=== PATIENT | male | born 1935 | race Caucasian/White ===

== ENCOUNTER → 2016-09-10 | Outpatient (CLI) | payer OTHER, BC ==
[~2016-09-10] MED LIST: CHLO1CAP PO; CHOL100010 PO; LANS30CA12 PO; LEVO150T22 PO; PHEN1TAB86 PO; ZNTT/150 PO
[2016-09-10 14:49] LABS: MAGNESIUM 2.5 mg/dl (1.8-2.4); THYROID STIMULATING HORMONE 1.42 uIu/ml (0.300-4.500)
[2016-09-10 15:01] LABS: ESTIMATED AVERAGE GLUCOSE 111 mg/dl; HA1C FLAG Normal (Normal)
--- NOTE | 2016-09-17 09:03 | CODING QUERY MEDICAL NECESSITY ---
SUPPORTING DIAGNOSIS NEEDED A supporting diagnosis is required for the test/procedure performed on this patient in order for us to be reimbursed by the patient's insurance. Please provide a supporting diagnosis for the following test/procedure listed below next to the test name along with your signature. *If there is no additional diagnosis for this patient that would support the following test/procedure please document that below next to the test/procedure. Test(s)/Procedure(s) that require a supporting diagnosis: DOS 09/10 * Hba1c DIAGNOSIS: Provider Signature: Date: Thank you Roseanna Billingsley Health Information Management Once completed, please kindly fax back to [phone] For questions please call [phone]
== END | disposition home or self-care (01) ==
LOC: C.LABBC 11:01
PROVIDERS: ATTEND Internal Medicine
DX: R20.9 Unspecified disturbances of skin sensation (principal); E03.9 Hypothyroidism, unspecified; E55.9 Vitamin D deficiency, unspecified; R53.83 Other fatigue; K21.9 Gastro-esophageal reflux disease without esophagitis

== ENCOUNTER → 2016-09-16 | Outpatient (CLI) | payer OTHER, BC ==
--- NOTE | 2016-09-16 10:12 | DIAGNOSTIC IMAGING REPORT ---
ULTRASOUND BILATERAL LOWER EXTREMITY ARTERIAL; ANKLE BRACHIAL INDICES CLINICAL HISTORY: Bilateral leg pain. COMPARISON STUDY: No priors. TECHNIQUE: Real-time, grayscale, and color Doppler sonography of the arteries of the right and left lower extremity is performed from the inguinal crease to the foot. Ankle-brachial indices are calculated. FINDINGS: Ankle-brachial indices: Right brachial pressure measures 139. Pressures in the right posterior tibial artery measure 133 for an ENRRIQUE of 0.96, and pressures in the right dorsalis pedis artery measure 120 for an ENRRIQUE of 0.86. Left brachial pressure measures 134. Pressures in the left posterior tibial artery measure 130 for an ENRRIQUE of 0.94, and pressures in the left dorsalis pedis artery measure 137 for an ENRRIQUE of 1.06. Right lower extremity: Echogenic atherosclerotic plaque is seen throughout the arteries of the right lower extremity. There are biphasic waveforms seen in the right common femoral artery with velocities measuring up to 66 cm/s. The right profunda femoris artery is patent with velocities measuring up to 55 cm/s. There are biphasic to triphasic waveforms seen throughout the right superficial femoral artery with velocities measuring up to 72 cm/s. There are biphasic waveforms in the popliteal artery with velocities measuring up to 53 cm/s. There is three-vessel runoff to the foot. Velocities in the right dorsalis pedis artery measure up to 102 cm/s. Left lower extremity: Atherosclerotic plaque and irregularity are seen throughout the arteries of the left lower extremity. The common femoral artery is patent and demonstrates triphasic arterial waveforms with velocities measuring up to 91 cm/s. The profunda femoris artery is patent with velocities measuring up to 64 cm/s. There are biphasic to triphasic waveforms seen throughout the left superficial femoral artery with velocities measuring up to 66 cm/s. There are biphasic waveforms in the popliteal artery with velocities measuring up to 63 cm/s. There is three-vessel runoff to the left foot. Velocities within the dorsalis pedis artery measure up to 126 cm/s. IMPRESSION: 1. There is no sonographic evidence of high-grade stenosis or focal vessel cutoff seen throughout the arteries of the right or left lower extremity. 2. Ankle brachial indices as above. Dictated: 09/16/2016 9:53 AM Transcribed: 09/16/2016 10:11 AM Jaida Electronically signed by: Toño Rico M.D. 09/16/2016 10:15 AM Dictated Date/Time: 09/16/2016 9:53 AM
== END | disposition home or self-care (01) ==
LOC: C.ULTR 08:27
PROVIDERS: ATTEND Internal Medicine Geriatric Medicine
DX: M79.606 Pain in leg, unspecified (principal); R94.39 Abnormal result of other cardiovascular function study

== ENCOUNTER → 2016-10-23 | Outpatient (CLI) | payer OTHER, BC | END | disposition home or self-care (01) | LOC: C.LABSPEC 17:32 | PROVIDERS: ATTEND Nurse Practitioner Adult Health | DX: N39.0 Urinary tract infection, site not specified (principal) ==

== ENCOUNTER → 2016-11-26 | Outpatient (CLI) | payer OTHER, BC ==
[~2016-11-26] MED LIST changes: +CHOL1000 PO; +DUTA0.5C PO; +LEVO150T PO; +LORA10CA2 PO; +RANI150T3 PO; +TADA20TA PO
[2016-11-26 15:11] LABS: BLOOD UREA NITROGEN 44 mg/dl (7-18); BUN/CREATININE RATIO 31.6 (10-20); CALCIUM 9.2 mg/dl (8.5-10.1); CARBON DIOXIDE 30 mmol/L (21-32); CHLORIDE 106 mmol/L (98-107); GLUCOSE 97 mg/dl (70-99); POTASSIUM 4.2 mmol/L (3.5-5.1); SODIUM 141 mmol/L (136-145)
== END | disposition home or self-care (01) ==
LOC: C.LABBC 11:10
PROVIDERS: ATTEND Urology
DX: R53.83 Other fatigue (principal); N39.0 Urinary tract infection, site not specified

== ENCOUNTER → 2017-02-04 | Outpatient (CLI) | payer OTHER, BC ==
[2017-02-04 13:24] LABS: ALT/SGPT 33 U/L (12-78); AST/SGOT 31 U/L (15-37); BLOOD UREA NITROGEN 39 mg/dl (7-18); BUN/CREATININE RATIO 32.7 (10-20); CALCIUM 8.9 mg/dl (8.5-10.1); CARBON DIOXIDE 25 mmol/L (21-32); CHLORIDE 109 mmol/L (98-107); CHOLESTEROL 145 mg/dl (0-200); GLUCOSE 83 mg/dl (70-99); POTASSIUM 4.2 mmol/L (3.5-5.1); SODIUM 144 mmol/L (136-145); TRIGLYCERIDES 135 mg/dl (0-150); VERY LOW DENSITY LIPOPROT CALC 27 mg/dl
[2017-02-04 13:31] LABS: ALKALINE PHOSPHATASE 67 U/L (45-117); CHOLESTEROL/HDL RATIO 2.6; FERRITIN 79.8 ng/ml (8.0-388.0); HDL CHOLESTEROL 56 mg/dl; LDL CHOLESTEROL CALCULATED 62 mg/dl; TOTAL IRON BINDING CAPACITY 249 mcg/dl (250-450)
== END | disposition home or self-care (01) ==
LOC: C.LAB 09:53
PROVIDERS: ATTEND Internal Medicine
DX: M54.18 Radiculopathy, sacral and sacrococcygeal region (principal)

== ENCOUNTER → 2017-02-06 | Outpatient (CLI) | payer OTHER, BC ==
[~2017-02-06] MED LIST changes: +GADOXETATE DISODIUM IV PRN
--- NOTE | 2017-02-06 12:06 | DIAGNOSTIC IMAGING REPORT ---
MRI LIVER COMBO CLINICAL HISTORY: Right lobe hepatic mass TECHNIQUE: Imaging was performed prior to and following IV contrast injection. (10 cc intravenous Eovist) COMPARISON STUDY: CT scan dated 04/12/2016, CT scan dated 09/19/2010, and 02/20/2006 FINDINGS: There is a lobulated 33 mm T2 bright mass with thin the right hepatic lobe posteriorly. This demonstrates restricted water diffusion. The lesion demonstrates peripheral nodular enhancement and is most consistent with a benign hepatic hemangioma. No splenic masses are visualized. There is no evidence of intrarectal hepatic biliary ductal dilatation There is an 8 mm right renal cyst No gallbladder is visualized. No adrenal masses are visualized. 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 IMPRESSION: 1. 33 mm T2 bright mass within the right hepatic lobe consistent with a benign hepatic hemangioma 2. 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 02/06/2017 12:04 PM Dictated Date/Time: 02/06/2017 11:55 AM
== END | disposition home or self-care (01) ==
LOC: C.MRIBC 09:47
PROVIDERS: ATTEND Internal Medicine
DX: K76.89 Other specified diseases of liver (principal); K86.2 Cyst of pancreas

== ENCOUNTER → 2017-04-17 | Outpatient (CLI) | payer OTHER, BC ==
[~2017-04-17] MED LIST changes: -CHOL1000 PO; -DUTA0.5C PO; -GADOXETATE DISODIUM IV PRN; -LEVO150T PO; -LORA10CA2 PO; -RANI150T3 PO; -TADA20TA PO
[2017-04-17 14:00] LABS: BASO % 0.4 %; BASO ABS # 0.02 K/uL (0-0.2); COMPLETE YES; EOS % 2.2 %; HEMATOCRIT 41.4 % (42-52); IG% 0.2 %; LYMPH % 26.7 %; LYMPH ABS # 1.22 K/uL (1.2-3.4); MEAN CELL VOLUME 94.3 fL (80-100); MEAN CORPUSCULAR HEMOGLOBIN 32.1 pg (25-34); MEAN CORPUSCULAR HGB CONC 34.1 g/dl (32-36); MEAN PLATELET VOLUME 10.6 fL (7.4-10.4); MONO % 12.7 %; NEUT % 57.8 %; PLATELET COUNT 174 K/uL (130-400); RED BLOOD COUNT 4.39 M/uL (4.7-6.1); WHITE BLOOD COUNT 4.57 K/uL (4.8-10.8)
[2017-04-17 14:12] LABS: BLOOD UREA NITROGEN 32 mg/dl (7-18); CALCIUM 8.8 mg/dl (8.5-10.1); CARBON DIOXIDE 30 mmol/L (21-32); CHLORIDE 108 mmol/L (98-107); GLUCOSE 80 mg/dl (70-99); POTASSIUM 4.5 mmol/L (3.5-5.1); SODIUM 142 mmol/L (136-145)
== END | disposition home or self-care (01) ==
LOC: C.LABBC 12:08
PROVIDERS: ATTEND Physician Assistant Medical
DX: R53.83 Other fatigue (principal)

== ENCOUNTER → 2017-06-05 | Day surgery (SDC) | payer OTHER, BC ==
[2017-06-04 11:23] VITALS: Ht 175.3 cm; Wt 69.5 kg
[~2017-06-05] VITALS: Ht 175.3 cm; Wt 69.5 kg
[~2017-06-05] MED LIST changes: +CHOL1000 PO; -CHOL100010 PO; +DUTA0.5C PO; +LEVO150T PO; -LEVO150T22 PO; +LIDOCAINE HCL 2% 2 ML VIAL (20MG/ML) ONE; +LORA10CA2 PO; +ONDANSETRON INJ 2 MG/ML 2 ML VIAL ONE; +PROPOFOL IV EMULSION 10 MG/ML 20 ML VIAL IV ONE; +RANI150T3 PO; +SODIUM CHLORIDE 0.9% 500ML 500 ML IV ONE; +TADA20TA PO; -ZNTT/150 PO
[2017-06-05 13:58] VITALS: TEMP 36.7
--- NOTE | 2017-06-05 15:13 | Endo History and Physical ---
History & Physical Date of Service: Jun 05, 2017. Chief Complaint: Vargas's,abdominal pain and reflux Referring Physician: Dr. 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 Past Medical History Arthritis, Fractures, Reflux, Seizure Disorder, Thrombophlebitis Past Surgical History Hx Cardiac Surgery: No Hx Internal Defibrillator: No Hx Pacemaker: No Hx Abdominal Surgery: No Hx Post-Op Nausea and Vomiting: No Hx Cancer Surgery: No Hx Thoracic Surgery: No Hx Orthopedic: Yes (LT RCR, RT FOOT BONE GRAFTING) Hx Urinary Tract Surgery: No Family History Esophogeal CA Social History Smoking Status: Former Smoker Hx Substance Use: No Hx Alcohol Use: Yes (OCCASIONALLY) Allergies Coded Allergies: Penicillins (Verified Allergy, Mild, HIVES, 06/04/17) BEE STING (Verified Allergy, Unknown, INSECT STINGS>SWELLING, 06/04/17) Current Medications Reported Home Medications Medications Dose Route/Sig Max Daily Dose Days Date Category Zantac (Ranitidine HCl) 150 Mg Tab 150 Mg PO DAILY 06/05/17 Reported Phenobarbital 60 Mg Tab 60 Mg PO QPM 06/04/17 Reported Claritin (Loratadine) 10 Mg Cap 10 Mg PO QAM 06/04/17 Reported Cialis (Tadalafil) 20 Mg Tab 20 Mg PO 2XWK 06/04/17 Reported Synthroid (Levothyroxine Sodium) 150 Mcg Tab 150 Mcg PO QAM 06/04/17 Reported Vitamin D3 (Cholecalciferol) 1,000 Unit Tab 1 Tab PO QAM 90 06/04/17 Reported Avodart (Dutasteride) 0.5 Mg Cap 0.5 Mg PO QAM 06/04/17 Reported Prevacid (Lansoprazole) 30 Mg Capcr 30 Mg PO QAM 08/31/15 Reported Chlordiazepoxide Hcl/Clid (Clidinium & Chlordiazepoxide) 1 Cap Cap 2.5-5 Mg PO QAM 04/06/13 Reported Vital Signs Weight (Kilograms): 69.55 Height (Feet): 5 Height (Inches): 9 Date Time Temp Pulse Resp B/P (MAP) Pulse Ox O2 Delivery O2 Flow Rate FiO2 06/05/17 13:58 36.7 62 24 130/78 (95) 97 Room Air Physical Exam General Appearance: WD/WN, no apparent distress Respiratory/Chest: Auscultation: breath sounds normal Cardiovascular: Heart Auscultation: RRR Abdomen: Bowel Sounds: normal Inspection & Palpation: soft, non-distended, no tenderness, guarding & rebound Assessment and Plan Assessment: 82 yo CM who presents for EGD secondary to Vargas's Esophagus. Plan: Proceed with EGD.
--- NOTE | 2017-06-05 15:31 | Discharge Instructions ---
Endoscopy Patient Instructions Date / Procedure(s) Performed Jun 05, 2017. EGD Allergy Information Coded Allergies: Penicillins (Verified Allergy, Mild, HIVES, 06/04/17) BEE STING (Verified Allergy, Unknown, INSECT STINGS>SWELLING, 06/04/17) Discharge Date / Findings Jun 05, 2017. Vargas's Esophagus s/p biopsies Hiatal hernia Medication Instructions OK to resume all medications today as prescribed Reported Home Medications Medications Dose Route/Sig Max Daily Dose Days Date Category Zantac (Ranitidine HCl) 150 Mg Tab 150 Mg PO DAILY 06/05/17 Reported Phenobarbital 60 Mg Tab 60 Mg PO QPM 06/04/17 Reported Claritin (Loratadine) 10 Mg Cap 10 Mg PO QAM 06/04/17 Reported Cialis (Tadalafil) 20 Mg Tab 20 Mg PO 2XWK 06/04/17 Reported Synthroid (Levothyroxine Sodium) 150 Mcg Tab 150 Mcg PO QAM 06/04/17 Reported Vitamin D3 (Cholecalciferol) 1,000 Unit Tab 1 Tab PO QAM 90 06/04/17 Reported Avodart (Dutasteride) 0.5 Mg Cap 0.5 Mg PO QAM 06/04/17 Reported Prevacid (Lansoprazole) 30 Mg Capcr 30 Mg PO QAM 08/31/15 Reported Chlordiazepoxide Hcl/Clid (Clidinium & Chlordiazepoxide) 1 Cap Cap 2.5-5 Mg PO QAM 04/06/13 Reported Provider Instructions Activity Restrictions - No exercising or heavy lifting for 24 hours. - Do not drink alcohol the day of the procedure. - Do not drive a car or operate machinery until the day after the procedure. - Do not make any important decisions or sign important papers in 24 hours after the procedure. Following Day: - Return to full activity which may include returning to work/school. Diet Start your diet with liquids and light foods (jello, soup, juice, toast). Then eat your usual diet if not nauseated. Treatment For Common After Affects For mild abdominal pain, bloating, or excessive gas: - Rest - Eat lightly - Lie on right side Follow-Up Information Follow-up with Dr. Mark Stevenson as scheduled Anesthesia Information What You Should Know You have had a procedure that required some medicine to reduce anxiety and discomfort. This treatment is called moderate sedation. After receiving the treatment, you may be sleepy, but you will be able to breathe on your own. The effects of the treatment may last for several hours. Follow these instructions along with Activity/Diet recommendations noted above: * Do NOT do anything where dizziness or clumsiness would be dangerous. * Rest quietly at home today, then you can be up and about tomorrow. * Have a responsible person stay with you the rest of today. * You may have had an I.V. today. If so, you may take the dressing off later today. Recommendations Call your doctor if: * Trouble breathing * Continuous vomiting for more than 24 hours * Temperature above 101 degrees * Severe abdominal pain or bloating * Pain not relieved by pain medicine ordered * There is increased drainage or redness from any incision * A large amount of rectal bleeding greater than 2-3 tablespoons. (If you had a polyp/s removed or have hemorrhoids, a small amount of blood - from the rectum is to be expected.) * You have any unanswered questions or concerns. IN THE EVENT OF A SERIOUS EMERGENCY, GO TO THE NEAREST EMERGENCY ROOM Your discharge instructions were prepared by provider Alfred Espinoza. Patient Instructions Signature Page [facility] Patient (or Guardian) Signature/Date: I have read and understand the instructions given to me by my caregivers. Caregiver/RN/Doctor Signature/Date: The above-named patient and/or guardian has received patient instructions on this date. + Original Patient Signature Page (only) stays with chart. Please make copy for patient.
--- NOTE | 2017-06-05 15:35 | GI REPORT ---
Procedure Date: 06/05/2017 1:44 PM Procedure: Upper GI endoscopy Indications: Follow-up of Vargas's esophagus Medicines: Monitored Anesthesia Care Complications: No immediate complications. Estimated Blood Loss: Estimated blood loss: none. Procedure: Pre-Anesthesia Assessment: - Prior to the procedure, a History and Physical was performed, and patient medications and allergies were reviewed. The patient's tolerance of previous anesthesia was also reviewed. The risks and benefits of the procedure and the sedation options and risks were discussed with the patient. All questions were answered, and informed consent was obtained. Prior Anticoagulants: The patient has taken no previous anticoagulant or antiplatelet agents. ASA Grade Assessment: II - A patient with mild systemic disease. After reviewing the risks and benefits, the patient was deemed in satisfactory condition to undergo the procedure. After obtaining informed consent, the endoscope was passed under direct vision. Throughout the procedure, the patient's blood pressure, pulse, and oxygen saturations were monitored continuously. The Scope was introduced through the mouth, and advanced to the second part of duodenum. The upper GI endoscopy was accomplished without difficulty. The patient tolerated the procedure well. Findings: There were esophageal mucosal changes consistent with short-segment Vargas's esophagus present at the gastroesophageal junction. The maximum longitudinal extent of these mucosal changes was 2 cm in length. Mucosa was biopsied with a cold forceps for histology. One specimen bottle was sent to pathology. A small hiatus hernia was present. The examined duodenum was normal. Impression: - Esophageal mucosal changes consistent with short-segment Vargas's esophagus. Biopsied. - Small hiatus hernia. - Normal examined duodenum. Recommendation: - Resume previous diet. - Continue present medications. - Await pathology results. - Return to primary care physician as previously scheduled. Alfred Espinoza, DO 06/05/2017 3:35:31 PM This report has been signed electronically. Note Initiated On: 06/05/2017 1:44 PM I attest to the content of the Intraoperative Record and orders documented therein, exceptions below
--- NOTE | 2017-06-05 15:57 | Anesthesiology Progress Note ---
Anesthesia Post Op Note Date & Time Jun 05, 2017 at 15:57 Vital Signs Pain Intensity: 0 Vital Signs Past 12 Hours Date Time Temp Pulse Resp B/P (MAP) Pulse Ox O2 Delivery O2 Flow Rate FiO2 06/05/17 15:45 65 18 146/76 (99) 96 Room Air 06/05/17 15:31 64 22 126/74 (91) 96 Room Air 06/05/17 13:58 36.7 62 24 130/78 (95) 97 Room Air Notes Mental Status: alert / awake / arousable, participated in evaluation Pt Amnestic to Procedure: Yes Nausea / Vomiting: adequately controlled Pain: adequately controlled Airway Patency, RR, SpO2: stable & adequate BP & HR: stable & adequate Hydration State: stable & adequate Anesthetic Complications: no major complications apparent
[2017-06-05 15:59] VITALS: BP 141/77; PULSE 58; O2SAT 98
== END | disposition home or self-care (01) ==
LOC: C.GI 13:33
PROVIDERS: ATTEND Internal Medicine
DX: Z09 Encounter for follow-up examination after completed treatment for conditions other than malignant neoplasm (principal); K44.9 Diaphragmatic hernia without obstruction or gangrene; K22.70 Barrett's esophagus without dysplasia; G40.909 Epilepsy, unspecified, not intractable, without status epilepticus; Z79.899 Other long term (current) drug therapy; Z98.890 Other specified postprocedural states; Z88.0 Allergy status to penicillin; Z87.891 Personal history of nicotine dependence; Z80.0 Family history of malignant neoplasm of digestive organs

== ENCOUNTER → 2017-10-07 | Outpatient (CLI) | payer OTHER, BC ==
[~2017-10-07] MED LIST changes: -LIDOCAINE HCL 2% 2 ML VIAL (20MG/ML) ONE; -ONDANSETRON INJ 2 MG/ML 2 ML VIAL ONE; -PROPOFOL IV EMULSION 10 MG/ML 20 ML VIAL IV ONE; -SODIUM CHLORIDE 0.9% 500ML 500 ML IV ONE
--- NOTE | 2017-10-07 14:15 | DIAGNOSTIC IMAGING REPORT ---
CHEST 2 VIEWS ROUTINE CLINICAL HISTORY: R05 Coughrecent left sided pneumonia (diagnosed 1 month ago in N dyspnea COMPARISON STUDY: 04/04/2016 FINDINGS: Mild emphysematous change. Minimal dependent basilar atelectasis unchanged from the prior study. No focal infiltrate. Diaphragms smooth but slightly flattened. Mild degenerative changes of thoracic spine. IMPRESSION: Mild emphysematous change. No acute process. The above report was generated using voice recognition software. It may contain grammatical, syntax or spelling errors. Electronically signed by: Reinaldo Eckert M.D. 10/07/2017 2:13 PM Dictated Date/Time: 10/07/2017 2:12 PM
== END | disposition home or self-care (01) ==
LOC: C.RADBC 13:36
PROVIDERS: ATTEND Physician Assistant Medical
DX: R05 Cough (principal)

== ENCOUNTER → 2017-12-05 | Outpatient (CLI) | payer OTHER, BC ==
--- NOTE | 2017-12-05 11:41 | DIAGNOSTIC IMAGING REPORT ---
CHEST 2 VIEWS ROUTINE HISTORY: Pneumonia. COMPARISON: Chest 10/07/2017. FINDINGS: The lungs are mildly hyperexpanded with apical predominant emphysematous changes. No focal lung consolidations to suggest pneumonia. The heart is normal in size. No pleural effusions. No pneumothorax. IMPRESSION: No significant change compared to the prior study. No acute process. Mild emphysema. Electronically signed by: Brennon Gruber M.D. 12/05/2017 11:39 AM Dictated Date/Time: 12/05/2017 11:38 AM
== END ==
LOC: C.RADBC 11:19
PROVIDERS: ATTEND Physician Assistant Medical
DX: J18.9 Pneumonia, unspecified organism (principal)

== ENCOUNTER 2023-12-25 06:40 | Observation (INO) ==
--- NOTE | 2023-12-11 10:12 | Anesthesiology Consultation ---
Date of Service December 11, 2023 Assessment & Plan (1) Encounter for pre-operative examination: Chart Review Chart Review: Acceptable Risk for Surgery and Patient NOT seen in Pre Admission Testing -Infectious Disease screening: Per PAT nursing assessment on 12/11/23. Patient resides at [facility]. No known infectious disease contacts in past 10 days or current infectious disease symptoms. No recent travel outside the country. Due to facility patient- patient will need [facility] DOS- ordered Cysto, TURBT 06/11/22= Done under GA With LMA #5.0 x 1, good seal. History Surgery Operation Date: 12/25/23 09:50 Proposed Procedures p TURP (Transurethral Resection of the Prostate) - Dave Garcia, Height/Weight Height: 5 ft 10 in Weight: 74.843 kg Allergies Allergy/AdvReac Type Severity Reaction Status Date / Time bee venom protein (honey bee) Allergy Intermediate INSECT Verified 12/11/23 08:49 STINGS>SWELLING Penicillins Allergy Intermediate HIVES Verified 12/11/23 08:49 Medications Home Medications Medication Instructions Recorded Confirmed Last Taken acetaminophen 325 mg tablet 325 mg PO QID PRN Pain 05/27/22 12/11/23 06/10/22 20:00 (Tylenol) calcium carbonate (Tums E-X) 300 mg PO BID PRN dyspepsia #60 08/26/23 12/11/23 Unknown tabs acetaminophen 500 mg tablet 500 mg PO Q6H PRN fever #30 tabs 09/17/23 12/11/23 Unknown (Tylenol Extra Strength) bismuth subsalicylate 525 mg/15 mL 525 mg (15 mL) PO Q30M PRN 09/17/23 12/11/23 Unknown oral suspension (Pepto-Bismol Max diarrhea #[address]) carboxymethylcellulose sodium 0.5 1 drp ophthalmic (eye) BID #15 mL 09/17/23 12/11/23 Unknown % eye drops (Refresh Tears) hydrocortisone 1 % topical cream 1 applic topical BID PRN skin 09/17/23 12/11/23 Unknown (Cortizone-10) irritation #28.4 grams sildenafil 50 mg tablet (Viagra) 50 mg PO ONCE PRN sexual activity 10/29/23 12/11/23 Unknown #4 tabs guaifenesin 600 mg tablet, 600 mg PO BID PRN congestion #60 12/01/23 12/11/23 Unknown extended release 12 hr (Mucinex) tabs phenobarbital 60 mg tablet 60 mg PO HS 30 days #30 tabs 12/01/23 12/11/23 Unknown clotrimazole 1 % topical cream 1 applic topical BID PRN Dry Skin 12/11/23 12/11/23 Unknown famotidine 40 mg tablet 40 mg PO QPM PRN Heartburn 12/11/23 12/11/23 Unknown fluticasone fur. 100 mcg-umeclid 1 inh inhalation QAM 12/11/23 12/11/23 Unknown 62.5 mcg-vilant 25 mcg inhalat.powder (Trelegy Ellipta) lansoprazole 30 mg capsule,delayed 30 mg PO QAM PRN Heartburn 12/11/23 12/11/23 Unknown release levothyroxine 150 mcg tablet 150 mcg PO QAM 12/11/23 12/11/23 Unknown nystatin 100,000 unit/gram topical 1 applic topical BID PRN yeast 12/11/23 12/11/23 Unknown cream sucralfate 1 gram tablet 1 g PO HS PRN Heartburn 12/11/23 12/11/23 Unknown Past Medical History Medical History (Updated 12/11/23 @ 10:20 by Shawanda Galdamez PA-C) Vargas's esophagus BPH (benign prostatic hyperplasia) Cervicalgia Conversion disorder with attacks or seizures - resident at [facility] Cyst of pancreas Interval stability of pancreatic head IPMN per 01/2022 abdomen MRI Dyshidrotic eczema Emphysema, interstitial recently seen by Pulm, Dr. Alvarenga, started on Trelegy Gait disturbance uses a walker as a result of a fall in 2021 GERD (gastroesophageal reflux disease) Hearing loss B/L hearing aides Hepatic cyst 3.2cm hemangioma per 01/2022 abdomen MRI History of COVID-19 not hospitalized, mild History of dysphagia History of seizures (~1967) last 1967--grand mal seizure on phenobarbital Hx of falling Hx of subdural hematoma (~11/2021) Hx of tinnitus Hx pulmonary embolism (~11/2021) Hypersomnia Pulm setting patient up for inpatient sleep study in the future per 11/2023 office visit Hypothyroidism IBS (irritable bowel syndrome) Inguinal hernia of left side without obstruction or gangrene Meralgia paresthetica of right side retirement resident PT RESIDENT AT [facility] Paresthesias/numbness Polyneuropathy Poor balance uses walker Radiculitis, lumbosacral Sacral radiculopathy SS-A antibody positive Urethral stricture Past Family History Family History Brother Family history of diabetes mellitus Hypertension Myocardial infarction Heart disease Father Acute myocardial infarction Unknown Glaucoma Grandmother Stomach cancer Other No family history of adverse response to anesthesia No family history of bleeding disorder Denies family history of Ovarian cancer Prostate cancer Breast cancer Lung cancer Colorectal cancer Past Surgical History Surgical History History of colonoscopy History of esophagogastroduodenoscopy (EGD) History of fasciotomy bilateral palmar fasciotomy for Dupuytren's Contracture History of repair of left rotator cuff (~1985) History of tonsillectomy and adenoidectomy History of tooth extraction all teeth Hx of arthroscopy of right knee Hx of transurethral resection of prostate (~05/2022) S/P foot surgery, right bone graft Social History Smoking Status: Former smoker Smoking cigarettes per day: 2 PPD Do You Dip or Chew Tobacco: No Smoking End Date: Quit 1975 Hx Alcohol Use: Yes Alcohol type: beer and wine alcohol intake frequency: holidays/special occasions only Hx Substance Use: No substance use type: does not use Lab Results Anesthesia Preop Results Results Anesthesia Widget: WBC 7.88 K/ul (4.8-10.8) 12/04/23 Hgb 13.7 g/dl (14.0-18.0) L 12/04/23 Hct 43.2 % (42.0-52.0) 12/04/23 Plt 240 K/uL (130-400) 12/04/23 Na 137 mmol/L (136-145) 12/04/23 K 4.2 mmol/L (3.5-5.1) 12/04/23 Cl 105 mmol/L (98-107) 12/04/23 CO2 27 mmol/L (21-32) 12/04/23 BUN 27 mg/dl (6-23) H 12/04/23 Creat 1.33 mg/dl (0.6-1.4) 12/04/23 Glucose Level 56 mg/dl (70-99(Fasting)) L 12/04/23 TSH 0.403 uIu/ml (0.300-4.500) 11/13/23 Testing Laboratory Results 12/04/23= URINE CULTURE: More than three types of organisms present, all high counts. Repeat collection recommended (will leave to surgeon's discretion) Electrocardiogram Date: 12/04/23 Findings: + NSR @ (70bpm) RBBB Chest X-Ray Date: 11/13/23 FINDINGS: PA and lateral chest radiographs are compared to study dated 03/18/2022. Correlation is made with chest CT dated 01/31/2022. The cardiomediastinal silhouette is unremarkable noting atherosclerotic calcification of the thoracic aorta. A hiatal hernia is observed. Emphysema and chronic interstitial thickening is similar to previous. There is bibasilar scarring/atelectasis. A nodular opacity in the right midlung is unchanged. The lungs and pleural spaces are otherwise clear. There is no pneumothorax. The skeletal structures are osteopenic. Mild degenerative change is noted in the shoulders and spine. The bony thorax appears intact. IMPRESSION: 1. Emphysematous change with no active disease in the chest. 2. Hiatal hernia. Pulmonary Function Test Date: 12/01/23 Moderate obstructive lung dysfunction Flow volume loop shows expiratory scooping Suggest clinical correlation
--- NOTE | 2023-12-15 15:01 | PAT Medication Instructions ---
Medication Instructions Date of Service December 15, 2023 Home Medications Medication Instructions Recorded calcium carbonate (Tums E-X) 300 mg PO BID PRN dyspepsia #60 08/26/23 tabs acetaminophen 500 mg tablet 500 mg PO Q6H PRN fever #30 tabs 09/17/23 (Tylenol Extra Strength) bismuth subsalicylate 525 mg/15 mL 525 mg (15 mL) PO Q30M PRN 09/17/23 oral suspension (Pepto-Bismol Max diarrhea #[address]) carboxymethylcellulose sodium 0.5 1 drp ophthalmic (eye) BID #15 mL 09/17/23 % eye drops (Refresh Tears) hydrocortisone 1 % topical cream 1 applic topical BID PRN skin 09/17/23 (Cortizone-10) irritation #28.4 grams sildenafil 50 mg tablet (Viagra) 50 mg PO ONCE PRN sexual activity 10/29/23 #4 tabs guaifenesin 600 mg tablet, 600 mg PO BID PRN congestion #60 12/01/23 extended release 12 hr (Mucinex) tabs phenobarbital 60 mg tablet 60 mg PO HS 30 days #30 tabs 12/01/23 acetaminophen 325 mg tablet (Tylenol) 325 mg PO QID PRN Pain calcium carbonate (Tums E-X) 300 mg PO BID PRN dyspepsia acetaminophen 500 mg tablet (Tylenol Extra Strength) 500 mg PO Q6H PRN fever bismuth subsalicylate 525 mg/15 mL oral suspension (Pepto-Bismol Max St) 525 mg (15 mL) PO Q30M PRN diarrhea carboxymethylcellulose sodium 0.5 % eye drops (Refresh Tears) 1 drp ophthalmic (eye) BID hydrocortisone 1 % topical cream (Cortizone-10) 1 applic topical BID PRN skin irritation sildenafil 50 mg tablet (Viagra) 50 mg PO ONCE PRN sexual activity guaifenesin 600 mg tablet, extended release 12 hr (Mucinex) 600 mg PO BID PRN congestion phenobarbital 60 mg tablet 60 mg PO HS clotrimazole 1 % topical cream 1 applic topical BID PRN Dry Skin famotidine 40 mg tablet 40 mg PO QPM PRN Heartburn fluticasone fur. 100 mcg-umeclid 62.5 mcg-vilant 25 mcg inhalat.powder (Trelegy Ellipta) 1 inh inhalation QAM lansoprazole 30 mg capsule,delayed release 30 mg PO QAM PRN Heartburn levothyroxine 150 mcg tablet 150 mcg PO QAM nystatin 100,000 unit/gram topical cream 1 applic topical BID PRN yeast sucralfate 1 gram tablet 1 g PO HS PRN Heartburn STOP taking 24 hours before surgery hydrocortisone 1 % topical cream (Cortizone-10) 1 applic topical BID PRN skin irritation sildenafil 50 mg tablet (Viagra) 50 mg PO ONCE PRN sexual activity clotrimazole 1 % topical cream 1 applic topical BID PRN Dry Skin nystatin 100,000 unit/gram topical cream 1 applic topical BID PRN yeast DO NOT take the morning of surgery calcium carbonate (Tums E-X) 300 mg PO BID PRN dyspepsia bismuth subsalicylate 525 mg/15 mL oral suspension (Pepto-Bismol Max St) 525 mg (15 mL) PO Q30M PRN diarrhea guaifenesin 600 mg tablet, extended release 12 hr (Mucinex) 600 mg PO BID PRN congestion Take morning of surgery With a small sip of water, OTHERWISE NOTHING TO EAT OR DRINK AFTER MIDNIGHT: acetaminophen 325 mg tablet (Tylenol) 325 mg PO QID PRN Pain (if needed) acetaminophen 500 mg tablet (Tylenol Extra Strength) 500 mg PO Q6H PRN fever (if needed) carboxymethylcellulose sodium 0.5 % eye drops (Refresh Tears) 1 drp ophthalmic (eye) BID fluticasone fur. 100 mcg-umeclid 62.5 mcg-vilant 25 mcg inhalat.powder (Trelegy Ellipta) 1 inh inhalation QAM lansoprazole 30 mg capsule,delayed release 30 mg PO QAM PRN Heartburn (if needed) levothyroxine 150 mcg tablet 150 mcg PO QAM Take evening before surgery acetaminophen 325 mg tablet (Tylenol) 325 mg PO QID PRN Pain (if needed) calcium carbonate (Tums E-X) 300 mg PO BID PRN dyspepsia (if needed) acetaminophen 500 mg tablet (Tylenol Extra Strength) 500 mg PO Q6H PRN fever (if needed) bismuth subsalicylate 525 mg/15 mL oral suspension (Pepto-Bismol Max St) 525 mg (15 mL) PO Q30M PRN diarrhea (if needed) carboxymethylcellulose sodium 0.5 % eye drops (Refresh Tears) 1 drp ophthalmic (eye) BID guaifenesin 600 mg tablet, extended release 12 hr (Mucinex) 600 mg PO BID PRN congestion (if needed) phenobarbital 60 mg tablet 60 mg PO HS famotidine 40 mg tablet 40 mg PO QPM PRN Heartburn (if needed) sucralfate 1 gram tablet 1 g PO HS PRN Heartburn (if needed) Other Notes If you have any questions please call us at [phone] or [phone] or [phone] or [phone]
[~2023-12-25 06:40] MED LIST changes: +ALLERGY Noted to ORDERED Medication SCH; -CHLO1CAP PO; -CHOL1000 PO; -DUTA0.5C PO; -LANS30CA12 PO; -LEVO150T PO; -LORA10CA2 PO; -PHEN1TAB86 PO; -RANI150T3 PO; -TADA20TA PO
--- OUTSIDE RECORDS SUMMARY | 2023-12-25 06:55 | External Medical Summary ---
Author Name Unknown Address Unknown Organization [id number]:[facility] [place] - [address] [place] [id number] Laboratory Report Ordering Provider Test Date Status TAVO VAZQUEZ 12/16/2023 06:50:45 Final Observation Date Value Abnormality Reference (Units) Status Bacteria identified in Specimen by Culture 12/16/2023 06:50:45 Multiple maryse suggests contamination or colonization Final Test: Culture, Urine, Quanti tative
Specimen Source: Urine, Clean Catch
Specimen Type: Urine
Specimen Date: 12/16/2023 6:50 AM
Result Date: 12/17/2023 10:40 AM
Result Status: Final result
Resulting Lab: [facility] [place]
[address]
[facility] [address]

CULTURE

Multiple maryse suggests contamination or colonization

null Performing Location [facility] [place] - [address] [facility] [address]
--- OUTSIDE RECORDS SUMMARY | 2023-12-25 06:55 | External Medical Summary ---
Author Name Unknown Address Unknown Organization [id number]:[facility] - [address] [place] [address] Laboratory Report Ordering Provider Test Date Status TAVO VAZQUEZ 12/16/2023 06:50:45 Final Observation Date Value Abnormality Reference (Units ) Status Color of Urine by Auto 12/16/2023 06:50:45 Yellow Light Yellow, Yellow, Dark Yellow Final Clarity, Urine 12/16/2023 06:50:45 Cloudy Abnormal Clear Final Glucose [Mass/volume] in Urine by Automated test strip 12/16/2023 06:50:45 Negative Negative (mg/dL) Final Bilirubin.total [Presence] in Urine by Automated test strip 12/16/2023 06:50:45 Negative Negative Final Ketones [Mass/volume] in Urine by Automated test strip 12/16/2023 06:50:45 Negative Negative (mg/dL) Final Specific gravity, Urine 12/16/2023 06:50:45 1.020 1.003-1.030 Final Hemoglobin [Presence] in Urine by Automated test strip 12/16/2023 06:50:45 Small Abnormal Negative Final pH, Urine 12/16/2023 06:50:45 6.0 5.0-7.5 (Units) Final Protein [Mass/volume] in Urine by Automated test strip 12/16/2023 06:50:45 100 Abnormal Negative (mg/dL) Final Urobilinogen [Mass/volume] in Urine by Automated test strip 12/16/2023 06:50:45 0.2 0.2, 1.0 (mg/dL) Final Nitrite [Presence] in Urine by Automated test strip 12/16/2023 06:50:45 Negative Negative Final Leukocyte esterase [Presence] in Urine by Automated test strip 12/16/2023 06:50:45 Large Abnormal Negative Final RBC, Urine 12/16/2023 06:50:45 0-2 0-2 (/HPF) Final WBC, Urine 12/16/2023 06:50:45 50+ Abnormal 0-2 (/HPF) Final Bacteria [#/area] in Urine sediment by Microscopy high power field 12/16/2023 06:50:45 0-25 0-25 (/HPF) Final CULTURE, URINE - [facility] 12/16/2023 06:50:45 Final Quantitative urine culture t o be performed Performing Location [facility] - [address] [place] [address]
--- OUTSIDE RECORDS SUMMARY | 2023-12-25 06:55 | External Medical Summary | Summary of Care ---
Author Name Unknown Organization [facility] Address [address] [place] [address] Phone [phone] Care Team Providers Care Road Test Examiner Name Role Phone Mark Stevenson MD Primary Care Provider Encounter Details Date Type Department Care Team (Late st Contact Info) Description 12/16/2023 Orders Only Lab Mobile Phlebotomy [facility] [address] [employer] [facility] [place] [address] Lillian Murry CRNP [address] [facility] [place] [address] Symptoms involving urinary system* Allergies Active Allergy Reactions Criticality Noted Date Comments Penicillins 05/18/2013 Pollen 05/18/2013 Seasonal, Ragweed documented as of this encounter (statuses as of 12/16/2023) Medications Medication Sig Dispensed Refills Start Date End Date Status PHENOBARBITAL 60 MG OR TABSIndications: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 (at least 30 min prior to breakfast or other meds) 0 Active clindinium-chlordiazep oxide (LIBRAX) 2.5-5 MG per capsule Take 1 Cap by mouth daily. 0 05/15/2017 Active dutasteride (AVODART) 0.5 MG Capsule TAKE 1 CAPSULE BY MOUTH ONCE DAILY - GENERIC AVODART 3 05/22/[address] (PREVACID) 30 MG CPDR Take 30 mg by mouth daily. 3 04/26/2017 Active loratadine (CLARITIN) 10 MG Tablet Take 10 mg by mouth daily. 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 Allergic rhinitis NON ALLERGIC RHINITIS Dysfunction of eustachian tube Otitis media Presbyacusis Sensorineural hearing loss, bilateral documented as of this encounter (statuses as of 12/16/2023) Immunizations Name Administration Dates Next Due COVID-19 mRNA, LNP-s, No Pre serve, 2-Dose Series (Moderna) 10/15/2020,09/19/2020 Seasonal Influenza, PF, 6 M & above, IM , (FluLaval or Fluzone) 06/16/2019,05/19/2018 Seasonal Influenza, Quadrivalent, No Preserve, I M 06/27/2016 Seasonal Influenza, Split, IIV3, With Preserve, Inj 05/13/2014,05/18/2013 documented as of this encounter Social History Tobacco Use Types Packs/Day Years Used Date Smoking Tobacco: Former Smokeless Tobacco: Never Alcohol Use Standard Drinks/Week Comments Yes 0 (1 standard drink = 0.6 oz pur e alcohol) one glass wine daily Sex and Gender Information Value Date Recorded Sex Assigned at Not on file Gender Identity Not on file Sexual Orientation Not on file Job Start Date Occupation Industry Not on file Not on file Not on file documented as of this encounter Progress Notes * Rhea Adams TECH - 12/16/2023 6:49 AM EDT lab documented in this encounter Plan of Treatment Scheduled Orders Name Type Priority Associated Diagnoses Orde r Schedule URINALYSIS, REFLEX TO CULTURE (NOT FOR NEUTROPENIC PATIENTS) Lab Routine Symptoms involving urinary system Expected: 12/16/2023, Expires: 12/15/2024 Health Maintenance Due Date Last Done Comments Depression Screening 1947 Zoster Vaccines (1 of 2) 1984 DTaP,Tdap,and Td Vaccines (1 - Tdap) 07/19/1997 07/18/1997, 07/18/1997 TSH 02/26/2003 02/26/2002, 08/18, 07/05/2001, Additional history exists Pneumococcal Vaccine: 65+ Years (2 of 2 - PCV) 12/12/2022 12/12/2021, 06/10/2001 COVID-19 Vaccine ( - season) 2023 06/26/2021, 10/15/2020, 09/19/2020 Influenza Vaccine (FLU shot) (Season Ended) 2024 06/16/2019, 05/19/2018, 06/27/2016, Additional history exists GARDASIL-HPV IMMUNIZATION SERIES Aged Out No longer eligible based on patient's age to complete this topic Hepatitis B Aged Out No longer eligi ble based on patient's age to complete this topic MENINGOCOCCAL (MENACTRA/MENVEO) Aged Out No longer eligible based on patient's age to complete this topic documented as of this encounter Medical Devices Not on filedocumented as of this encounter Visit Diagnoses Diagnosis Symptoms involving urinary system- Primary Other symptoms involving urinary system documented in this encounter Care Teams Road Test Examiner Relationship Specialty Start Date End Date Mark Stevenson MD PCP - General Internal Medicine 09/04/14 documented as of this encounter
[2023-12-25] MEDS ORDERED: fentaNYL citrate PF 100 MCG/2 ML VIAL ONE (07:35)
[2023-12-25] MEDS ORDERED: DEXAMETHASONE SOD INJ 4 MG/ML VIAL ONE (07:35)
[2023-12-25] MEDS ORDERED: LIDOCAINE 2% 2 ML VIAL/AMP(20MG/ML) INFIL ONE (07:35)
[2023-12-25] MEDS ORDERED: ONDANSETRON INJ 2 MG/ML 2 ML VIAL ONE (07:35)
[2023-12-25] MEDS ORDERED: PROPOFOL IV EMULSION 10 MG/ML 20 ML VIAL IV ONE (07:35)
[2023-12-25] MEDS ORDERED: Nursing to Pharmacy Communication SCH (07:45)
[2023-12-25] MEDS ORDERED: ATROPINE SULFATE 0.1 MG/ML 10ML SYR IV PRN (07:49)
[2023-12-25] MEDS ORDERED: ONDANSETRON INJ 2 MG/ML 2 ML VIAL IV PRN (07:49)
[2023-12-25] MEDS ORDERED: ePHEDrine sulfate 50 MG/ML AMP IV PRN (07:49)
[2023-12-25] MEDS ORDERED: fentaNYL citrate PF 100 MCG/2 ML VIAL IV PRN (07:49)
[2023-12-25] MEDS: LACTATED RINGER'S 1,000 ML IV SCH (07:50)
--- NOTE | 2023-12-25 07:53 | History & Physical Bridge Note ---
Date of Service December 25, 2023 History & Physical Bridge Note I have examined the patient, reviewed the History & Physical and in the interval since the performance of the History & Physical I have noted the following changes of clinical significance: no changes noted
[2023-12-25] MEDS ORDERED: oxyBUTYnin chloride 5 MG TAB PO PRN (07:55)
[2023-12-25] MEDS ORDERED: oxyCODONE/ACETAMINOPHEN 5mg/325mg TAB PO PRN (07:55)
[2023-12-25] MEDS ORDERED: MoRPHine SULFATE 2 MG/ML CARP IV PRN (07:55)
[2023-12-25] MEDS ORDERED: PHENAZOPYRIDINE HCL 200 MG TAB PO PRN (07:55)
[2023-12-25] MEDS: ceFAZolin 2,000 MG/15 ML IV PUSH IV ONE (08:00)
[2023-12-25] MEDS ORDERED: FAMOTIDINE 40 MG TABLET PO PRN (08:01)
[2023-12-25] MEDS ORDERED: PANTOprazole 40 MG TAB PO PRN (08:01)
[2023-12-25] MEDS ORDERED: NON-FORMULARY MEDICATION (Fluticasone-Umeclidin-Vilanter [Trelegy Ellipta] 100-62.5-25 mcg INH SCH (09:00)
--- NOTE | 2023-12-25 09:16 | Operative Report ---
PG Post Operative Report Pre & Post Diagnosis Operation Date: 12/25/23 08:20 Pre-Op Diagnosis: Benign Prostatic Hyperplasia with Urinary Obstruction Post-Op Diagnosis: Benign Prostatic Hyperplasia with Urinary Obstruction I identified the patient and participated in the time-out.: Yes Procedure Operation Date: 12/25/23 08:20 Actual Procedures p Transurethral Resection of the Prostate(Not Applicable) - Dave Garcia DO Surgeon Dave Garcia, II, DO Ripshear Operator None Estimated Blood Loss 5 Findings Consistent with Post-Op Diagnosis Large Prostate with obstruction. Irregular regrowth of prostate with very large left lateral lobe and pockets of debris within the regrowth. Specimens Prostate adenoma. Drains 22Fr 3way Catheter Anesthesia Type General Complications none Disposition Disposition: Recovery Room Indications Patient with obstruction due to prostate enlargement. Risks and benefits discussed at length. Description of Procedure Patient was consented and brought back to the operating room. Patient was placed under anesthesia in the supine position and moved to the dorsal lithotomy position. Patient was prepped and draped in the regular sterile fashion. A time out was completed. A 30degree Cystoscope was placed into the bladder and the entire bladder was examined. The UO's were identified as well as the bladder neck, trigone, dome, and the other important landmarks. The prostatic urethra and large lobes/adenoma was assessed and the veru and bladder neck identified and a regina/size was assessed. The resection scope was placed and the fine bipolar loop was selected. Starting at the 5 and 7 o'clock positions, a channel was created from bladder neck to the veru. Starting at the 11 and 1 o'clock positions, the prostate was resected down to capsule fibers. The tissue was then resected sweeping down to the median channel. The entire area was able to be cleared and resected. Pockets of debris were discovered in the left lateral lobe of the prostate. This was flushed clear. The Specimen was removed and sent for analysis. The resection bed and any bleeding areas were fulgurated/cauterized and the entire area inspected. All bleeding was controlled. The bladder was inspected a final time. The bladder was emptied and irrigated. All specimen and debris was removed. The scope was removed with the bladder partially full. A catheter was placed and balloon elevated. This was easily irrigated. The patient was cleaned, aroused from anesthesia, and transferred to the pacu in stable condition having tolerated the procedure well with no complications. I was present and participated in all aspects of the procedure. The patient will be monitored in the PACU until transferred. Plan to maintain catheter for 1-2 weeks. Monitor over night with observation. I attest to the content of the Intraoperative Record and any orders documented therein. Any exceptions are noted below.
--- NOTE | 2023-12-25 09:57 | Anesthesiology Progress Note ---
Date of Service December 25, 2023 Anesthesia Post Procedure Vital Signs Vital Signs: Temp Pulse Resp BP Pulse Ox O2 Del Method O2 Flow Rate 12/25/23 09:55 97.7 F 74 19 169/83 H 92 Room Air 0 12/25/23 09:50 73 18 164/103 H 95 Nasal Cannula 2 12/25/23 09:40 72 12 175/89 H 97 Nasal Cannula 2 12/25/23 09:30 72 12 164/83 H 97 Nasal Cannula 2 12/25/23 09:21 96.8 F L 72 16 166/79 H 97 Nasal Cannula 2 12/25/23 07:28 97.7 F 72 20 164/90 H 95 Room Air Transfer of Care Handoff Completed per policy Notes Mental Status: alert / awake / arousable and participated in evaluation Patient Amnestic to Procedure: Yes Nausea / Vomiting: adequately controlled Pain: adequately controlled Airway Patency, RR, SpO2: stable & adequate BP & HR: stable & adequate Hydration State: stable & adequate Anesthetic Complications: no major complications apparent and Pt Satisfied with anesthetic care
[2023-12-25 10:26] LABS: Basophils # (auto) 0.09 K/uL (0.00-0.20); Basophils % (auto) 0.9 %; Eosinophils # (auto) 0.12 K/uL (0.00-0.50); Eosinophils % (auto) 1.2 %; Hematocrit (blood only) 37.8 % (42.0-52.0); Hemoglobin 12.6 g/dl (14.0-18.0); Immature Granulocytes # (auto) 0.17 K/uL (0.01-0.20); Immature Granulocytes % (auto) 1.7 %; Lymphocytes # (auto) 0.85 K/uL (1.20-3.40); Lymphocytes % (auto) 8.4 %; Mean Corpuscular Hemoglobin 30.1 pg (25.0-34.0); Mean Corpuscular Hgb Conc 33.3 g/dL (32.0-36.0); Mean Corpuscular Volume 90.4 fL (80.0-100.0); Monocytes # (auto) 0.63 K/uL (0.11-0.59); Monocytes % (auto) 6.2 %; Neutrophils # (auto) 8.28 K/uL (1.40-6.50); Neutrophils % (auto) 81.6 %; Platelet Count 244 K/uL (130-400); RDW Coefficient of Variation 15.2 % (11.5-14.5); RDW Standard Deviation 50.3 fL (36.4-46.3); Red Blood Count 4.18 M/uL (4.70-6.10); White Blood Count 10.14 K/ul (4.8-10.8)
[2023-12-25 10:42] LABS: Albumin Globulin Ratio 1.2 (0.9-2); Albumin Level 3.6 gm/dl (3.4-5.0); BUN Creatinine Ratio 21.2 (10-20); Bilirubin,Total 0.4 mg/dl (0.2-1.0); Calcium 8.3 mg/dl (8.6-10.3); Creatinine Clr Calc Pharmacy 39.2 ml/min; Est GFR (Non-African American) 47.5 ml/min; Globulin 2.9 gm/dl (2.5-4.0); Potassium 4.8 mmol/L (3.5-5.1); Total Protein 6.5 gm/dl (6.0-8.3)
[2023-12-25] MEDS ORDERED: CALCIUM CARBONATE 1250MG TAB PO PRN (10:51)
--- NOTE | 2023-12-25 10:53 | Hospitalist Consultation ---
Date of Consultation December 25, 2023 Assessment & Plan (1) S/P TURP: S/p transurethral resection of prostate on 12/[address] Garcia Perioperative antibiotics, pain management, fluids, and DVT PPx per the primary team Patient reports no new pain or complaints at time of consult We will continue to follow (2) Emphysema, interstitial: Former tobacco cigarette smoker but quit 50 years ago Follows with pulmonology Patient is not on supplemental oxygen at baseline Continuous pulse oximetry while in patient Supplemental oxygen as needed; titrate to 89-92% Continue Trelegy (or Anoro Ellipta) daily (3) Chronic cough: Productive cough x 2 months Guaifenesin 600 mg p.o. q12h PRN for cough (4) History of seizures: Last grand mal seizure in 1967 He reports no problems since Seizure precautions not necessary at this time Continue phenobarbital 60 mg p.o. at bedtime (5) Anemia: Chronic; Hgb 12.6 post-op Hgb between 11.7 - 14.0 over the past couple years No signs of active bleeding on physical exam Carbajal draining clear yellow urine Can obtain repeat CBC prior to discharge if needed Plan Agree with current medical management: Disposition: MedSur Regular diet VTE PPx: SCDs/teds Thank you for allowing us to participate in the care of this patient, please reach out with any questions or concerns. We will continue to follow. Supervising Physician Co-Signing Physician Notes Patient seen and examined, chart reviewed, case discussed with Brennon Lombardi and I agree with the assessment and plan as above except as otherwise noted Labs and images reviewed Jonathan is an 88-year-old male with past medical history of COPD Gold stage B with [id number] smoking history in remission since , chronic cough, BPH with LUTS who presented for scheduled TURP due to BPH. We are consulted for postoperative medical management. Operative note reviewed, no complications during procedure. Patient seen at the bedside. Reports that he has a past history of seizures but none in several decades, reports that he is on phenobarbital for this and did have multiple seizures many decades ago and that these all occurred while playing chess which he no longer plays. Denies Bleeding issues, hematochezia, melena, epistaxis. Former smoker. Endorses that he has COPD/emphysema for which she is on Trelegy. Has had some cough with his COPD particularly in the last 2 months. At bedside Carbajal cath is in place draining very light yellow urine, no hematuria is present. Hypothyroidism Continue Synthroid COPD Continue Trelegy/formulary equivalent Continue incentive spirometry, target O2 greater than 89%. Do not hyperoxygenated greater than 94%. History of seizures Last seizure was several decades ago. He reports that he has done well on phenobarbital and also notes his seizures always occurred from playing chess which he no longer plays. Continue phenobarbital 60 mg daily at night. Overall he has been stable for many decades low risk. If seizure-like activity is observed then can if lorazepam 2 mg IV every 5 minutes up to 3 doses per episode and transfer to [facility] with seizure precautions at that timeassessment Chronic anemia Hemoglobin 12.6, last 13.7 preoperatively. Has ranged from 11.714 over the past few years MCV 90 Denies hematochezia, melena, hematemesis, epistaxis. Denies any history of bleeding problems in the past. Had a colonoscopy which was normal 15 years ago and has deferred further due to age Will check B12/folate. He is not microcytic suggestive of iron deficiency. No acute blood loss. Suspect mild chronic anemia with underlying CKD. Baseline GFR 4562. No acute symptoms. No indication for blood transfusion. No acute blood loss. No need for acute intervention at this time can follow-up as outpatient Agree assessment and management as above History of Present Illness Reason for Consultation: Medical management (emphysema, anemia, hx of seizures disorder) Requesting Physician: Dave Walker II, Attending Physician: Dave Garcia II, DO History of Present Illness Jonathan is a pleasant 88-year-old male with PMH of urethral stricture, BPH, GERD, Vargas's esophagus, interstitial emphysema, anemia, hypothyroidism, polyneuropathy, and grand-mal seizure. Patient presented for a transurethral resection of the prostate on 12/[address] Dave Garcia. Per review of operative note, EBL was listed as 5 cc, general anesthesia was used, and there were no reported intraoperative complications. Per review of patient's vitals postop, he has been hypertensive at 184/85; SpO2 95% on RA. Patient has no new complaints at time of consult. He denies any pain at this t palak. No burning sensation in his groin region or numbness or tingling going down the legs. He has been eating and drinking well since his procedure. Carbajal catheter is in place and draining clear yellow urine. No dysuria. Patient denies any blood in his urine or stool. No melena. His last colonoscopy was 15 years ago. His last seizure was over 50 years ago, and he has been on phenobarbital since without any problems. He only took his levothyroxine this morning; no recent change in medication; patient manages his own medications at home. Patient does endorse productive cough x 2 months in the setting of emphysema for which she follows with pulmonology. No supplemental oxygen at home. No CPAP at night. Patient is a former tobacco cigarette smoker but gave up smoking 50 years ago. ROS: Patient endorses productive cough x 2 months. Patient denies fever, chills, night sweats, dizziness, lightheadedness, headache, chest pain, chest pressure, chest palpitations, SOB, pleuritic CP, hemoptysis, abdominal pain, N/V/V/D, burning sensation in the groin region, saddle anesthesia, blood in his urine or stool, change in urinary/bowel habits, or numbness or tingling in the arms or legs bilaterally. Allergies Allergy/AdvReac Type Severity Reaction Status Date / Time bee venom protein (honey bee) Allergy Intermediate INSECT Verified 12/25/23 07:30 STINGS>SWELLING Penicillins Allergy Intermediate HIVES Verified 12/25/23 07:30 Home Medications Medication Instructions Recorded Confirmed Type calcium carbonate (Tums E-X) 300 mg PO BID PRN dyspepsia #60 08/26/23 12/25/23 Rx tabs acetaminophen 500 mg tablet 500 mg PO Q6H PRN fever #30 tabs 09/17/23 12/25/23 Rx (Tylenol Extra Strength) bismuth subsalicylate 525 mg/15 mL 525 mg (15 mL) PO Q30M PRN 09/17/23 12/25/23 Rx oral suspension (Pepto-Bismol Max diarrhea #[address]) carboxymethylcellulose sodium 0.5 1 drp ophthalmic (eye) BID #15 mL 09/17/23 12/25/23 Rx % eye drops (Refresh Tears) hydrocortisone 1 % topical cream 1 applic topical BID PRN skin 09/17/23 12/25/23 Rx (Cortizone-10) irritation #28.4 grams sildenafil 50 mg tablet (Viagra) 50 mg PO ONCE PRN sexual activity 10/29/23 12/25/23 Rx #4 tabs guaifenesin 600 mg tablet, 600 mg PO BID PRN congestion #60 12/01/23 12/25/23 Rx extended release 12 hr (Mucinex) tabs phenobarbital 60 mg tablet 60 mg PO HS 30 days #30 tabs 12/01/23 12/25/23 Rx clotrimazole 1 % topical cream 1 applic topical BID PRN Dry Skin 12/11/23 12/25/23 History famotidine 40 mg tablet 40 mg PO QPM PRN Heartburn 12/11/23 12/25/23 History fluticasone fur. 100 mcg-umeclid 1 inh inhalation QAM 12/11/23 12/25/23 History 62.5 mcg-vilant 25 mcg inhalat.powder (Trelegy Ellipta) lansoprazole 30 mg capsule,delayed 30 mg PO QAM PRN Heartburn 12/11/23 12/25/23 History release (Prevacid) levothyroxine 150 mcg tablet 150 mcg PO QAM 12/11/23 12/25/23 History nystatin 100,000 unit/gram topical 1 applic topical BID PRN yeast 12/11/23 12/25/23 History cream sucralfate 1 gram tablet 1 g PO HS PRN Heartburn 12/11/23 12/25/23 History nitrofurantoin 100 mg PO Q12H 7 days #14 caps 12/18/23 12/25/23 Rx monohydrate/macrocrystals 100 mg capsule (Macrobid) Patient History Medical History (Updated 12/25/23 @ 10:57 by Brennon Lombardi PA-C) Hypersomnia Pulm setting patient up for inpatient sleep study in the future per 11/2023 office visit History of dysphagia Hx of tinnitus History of COVID-19 not hospitalized, mild Hx of subdural hematoma (~11/2021) Hx pulmonary embolism (~11/2021) History of seizures (~1967) last 1967--grand mal seizure on phenobarbital Emphysema, interstitial recently seen by Pulm, Dr. Alvarenga, started on Trelegy long-term resident PT RESIDENT AT [facility] Conversion disorder with attacks or seizures - resident at [facility] Hx of falling Inguinal hernia of left side without obstruction or gangrene Vargas's esophagus Urethral stricture Sacral radiculopathy SS-A antibody positive Radiculitis, lumbosacral Poor balance uses walker Polyneuropathy Paresthesias/numbness Meralgia paresthetica of right side Hepatic cyst 3.2cm hemangioma per 01/2022 abdomen MRI Hearing loss B/L hearing aides Gait disturbance uses a walker as a result of a fall in 2021 Dyshidrotic eczema Cyst of pancreas Interval stability of pancreatic head IPMN per 01/2022 abdomen MRI Cervicalgia BPH (benign prostatic hyperplasia) GERD (gastroesophageal reflux disease) IBS (irritable bowel syndrome) Hypothyroidism Surgical History Hx of transurethral resection of prostate (~05/2022) History of fasciotomy bilateral palmar fasciotomy for Dupuytren's Contracture Hx of arthroscopy of right knee S/P foot surgery, right bone graft History of repair of left rotator cuff (~1985) History of colonoscopy History of esophagogastroduodenoscopy (EGD) History of tooth extraction all teeth History of tonsillectomy and adenoidectomy Family History Brother Family history of diabetes mellitus Hypertension Myocardial infarction Heart disease Father Acute myocardial infarction Unknown Glaucoma Grandmother Stomach cancer Other No family history of adverse response to anesthesia No family history of bleeding disorder Denies family history of Ovarian cancer Prostate cancer Breast cancer Lung cancer Colorectal cancer Social History (Updated 07/22/23 @ 08:25 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) Smoking Status: Former smoker Tobacco Type: Cigarettes Age Started Using Tobacco: 12; Age Quit Using Tobacco: 44; packs per day: 2; Cigarettes Per Day: 2 PPD; Smoking End Date: Quit 1975; Second Hand Exposure: No; Do You Dip or Chew Tobacco: No; Tobacco Cessation Education Requested by Patient: No Hx Alcohol Use: Yes Alcohol type: beer Alcohol type Comment: daily Alcohol Intake Frequency: 2-4 x/Month Hx Substance Use: No Preferred Language: Fijian Communication Ability: Effective Visual Impairment: Limited Hearing Ability: Use of Hearing Aid 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: No Beliefs That Will Affect Care: None marital status: / Current Living Situation: Alone Current Living Situation Comment: [facility] current occupational status: retired Other Information That Helps Us Care for You: No Feels Safe at Home: Yes Safety Concerns: Feels Safe At This Time Childhood Exposure to Second-Hand Smoke: No Diet: regular Diet Comment: regular caffeine: Yes Dental Care, Regularly: No Physical Activity Frequency: Daily Physical Activity Frequency Comment: walks 8 miles a dday Seatbelt Use: always Sunscreen Use: Yes Assistive Devices: Denture - Upper, Denture - Lower, Glasses, Hearing Aid - Bilateral and Walker Review of Systems Review of Systems: See HPI above Physical Exam Physical Exam: General: no acute distress; pleasant affect; non-toxic appearing; well- nourished; cooperative; SpO2 94% on RA HEENT: normocephalic, atraumatic; no scleral icterus; PERRLA; moist mucus membrane; vision intact; hard of hearing Neck: supple; no lymphadenopathy; trachea midline Skin: warm, dry without signs of tenting; no cyanosis; no rashes, bruising, lesions, or erythema noted CV: chest wall NTP; RRR; S1/S2 normal; no murmurs/rubs/gallops; pulses intact and symmetric at radial, DP, and PT Lungs: no acute respiratory distress; symmetrical chest wall expansion; diminished, but clear breath sounds across all lung lopez w/o adventitious sounds; no wheezing ABD: Soft, NTP; BS present; no rebound/guarding; no distention MSK: no tics or fasciculations; no edema noted in the LEs b/l, nonerythematous; SCDs/TEDs in place; patient demonstrates the ability to wiggle toes bilaterally : Carbajal catheter in place without signs of purulent drainage, erythema, or bleeding; clear yellow urine production Neuro: A&Ox3; normal mood and affect; fluent speech; no focal deficits; sensation intact in the LEs b/l assess via light touch at the feet Results & Data Results & Data Vital Signs (Past 12 Hours) Vital Signs Temp Pulse Resp BP Pulse Ox O2 Del Method O2 Flow Rate 12/25/23 10:20 73 13 169/89 H 97 Room Air 2 12/25/23 10:10 71 12 180/90 H 92 Nasal Cannula 2 12/25/23 09:55 36.5 C 74 19 169/83 H 92 Room Air 0 12/25/23 09:50 73 18 164/103 H 95 Nasal Cannula 2 12/25/23 09:40 72 12 175/89 H 97 Nasal Cannula 2 12/25/23 09:30 72 12 164/83 H 97 Nasal Cannula 2 12/25/23 09:21 36.0 C L 72 16 166/79 H 97 Nasal Cannula 2 12/25/23 07:28 36.5 C 72 20 164/90 H 95 Room Air Laboratory Results Abnormal lab results 12/25/23 Range/Units 10:02 RBC 4.18 L (4.70-6.10) M/uL Hgb 12.6 L (14.0-18.0) g/dl Hct 37.8 L (42.0-52.0) % RDW Std Deviation 50.3 H (36.4-46.3) fL RDW Coeff of Chris 15.2 H (11.5-14.5) % Neut # (Auto) 8.28 H (1.40-6.50) K/uL Lymph # (Auto) 0.85 L (1.20-3.40) K/uL [place] # (Auto) 0.63 H (0.11-0.59) K/uL BUN 28 H (6-23) mg/dl BUN/Creatinine Ratio 21.2 H (10-20) Glucose 102 H (70-99(Fasting)) mg/dl Calcium 8.3 L (8.6-10.3) mg/dl AST 12 L (13-39) U/L PG Care Time/CCT Total # of Minutes Spent Total Time Spent with Patient: Total time spent is greater than 50% in coordination of care (as documented) at patient's floor/unit and/or counseling patient: C[place] [address] IN/OBS CONSULT LVL 3,45M Patient Type Established History Comprehensive Exam Comprehensive Medical Decision Making Moderate Complexity Diagnoses S/P TURP Z90.79 Emphysema, interstitial J98.2 Chronic cough R05.3 History of seizures Z87.898 Anemia D64.9
[2023-12-25] MEDS: SODIUM CHLORIDE 0.9% 1,000 ML IV SCH (11:05)
[2023-12-25] MEDS ORDERED: guaiFENesin 600 MG TABCR PO PRN (11:42)
[2023-12-25] MEDS: DOCUSATE SODIUM 100 MG CAP PO SCH (12:15)
[2023-12-25] MEDS: FLUTICASONE FUROATE 100MCG 14 PUFFS/INHALER INH SCH (12:15)
[2023-12-25] MEDS: UMECLIDINIUM/VILANTEROL 62.5/25MCG 7 PUFFS/INHALER INH SCH (12:16)
[2023-12-25] MEDS: ceFAZolin 2000MG 2,000 MG/15 ML SYR IV SCH (16:53)
[2023-12-25] MEDS: PHENobarbitaL 30 MG TAB PO SCH (20:06)
[2023-12-26] MEDS: LEVOTHYROXINE SODIUM 150 MCG TABLET PO SCH (05:19)
--- NOTE | 2023-12-26 09:28 | Urology Progress Note ---
Date of Service December 26, 2023 Assessment & Plan (1) Urinary retention due to benign prostatic hyperplasia: (2) S/P TURP: Plan: - Pt POD#1 s/p TURP with Dr. Garcia - Doing well, progressing as expected - Afebrile, vitals stable - Tolerating PO diet - 3 way Carbajal catheter intact, patent and draining clear urine with CBI on slow - CBI clamped this am, nursing aware - Maintain Carbajal catheter - Anticipate home with Carbajal catheter later today presuming urine appropriate and he continues to progress as expected - Urine remains clear with CBI clamped - Patient ready for discharge now with Carbajal catheter, sent course of antibiotics - Expected clinical course reviewed, all questions answered - Will arrange outpatient follow-up with our service for voiding trial Admission and Anticipated Discharge Date Admission Date: December 25, 2023 Subjective Patient seen and examined at bedside this morning He was returning from the bathroom when I arrived No acute issues overnight Carbajal is patent and draining clear yellow urine, CBI on slow CBI clamped during exam, RN aware Denies pain Had BM this am No nausea, vomiting, fever or chills Review of Systems Constitutional: as per Subjective / HPI Genitourinary: + as per Subjective / HPI Physical Exam Constitutional: well developed and well nourished; no acute distress Respiratory: normal respiratory effort; no respiratory distress and no labored breathing Gastrointestinal (Abdomen): Inspection/Auscultation: abdomen normal to inspection Musculoskeletal: Head/Neck/Chest: normocephalic Neurologic: moves all extremities and awake Psychiatric: Orientation: alert and oriented x 3 Genitourinary: Carbajal patent and draining clear yellow urine with CBI on slow, CBI clamped Results & Data Vital Signs (Past 12 Hours) Vital Signs Temp Pulse Resp BP Pulse Ox O2 Del Method O2 Flow Rate 12/26/23 07:55 36.7 C 81 18 116/68 93 Room Air 12/26/23 04:35 36.8 C 75 19 138/82 94 Nasal Cannula 2 12/26/23 00:42 36.8 C 84 18 124/78 94 Room Air PG Care Time/CCT Total # of Minutes Spent Total Time Spent with Patient: Total time spent is greater than 50% in coordination of care (as documented) at patient's floor/unit and/or counseling patient: Coding Level of Care Code None Diagnoses Urinary retention due to benign prostatic hyperplasia N40.1; R33.8 S/P TURP Z90.79
--- NOTE | 2023-12-26 10:43 | Discharge Summary ---
Date of Service December 26, 2023 Admission HPI Per Admitting Provider Patient with urinary retention due to BPH here for transurethral resection of prostate. Admission Exam Per Admitting Provider General: Alert in no acute distress. HEENT: Normocephalic Atraumatic. Inspection normal. Psychologic: Normal affect. Respiratory: Nonlabored. Cardiovascular: No tachycardia Skin: One [place] and Dry. Principal Diagnosis Urinary retention due to benign prostatic hyperplasia Discharge Exam Constitutional well developed and well nourished; no acute distress Respiratory normal respiratory effort; no respiratory distress and no labored breathing Gastrointestinal (Abdomen) Inspection/Auscultation: abdomen normal to inspection Musculoskeletal Head/Neck/Chest: normocephalic Neurologic moves all extremities and awake Psychiatric Orientation: alert and oriented x 3 Genitourinary Carbajal intact and draining clear yellow urine with CBI clamped since earlier this morning Discharge Data Allergies Allergy/AdvReac Type Severity Reaction Status Date / Time bee venom protein (honey bee) Allergy Intermediate INSECT Verified 12/25/23 07:30 STINGS>SWELLING Penicillins Allergy Intermediate HIVES Verified 12/25/23 07:30 Consultations 12/25/23 07:55 Consult Hospitalist Routine Procedures Performed Operation Date: 12/25/23 08:20 Actual Procedures p Transurethral Resection of the Prostate(Not Applicable) - Dave Garcia, DO Hospital Course (1) Urinary retention due to benign prostatic hyperplasia: (2) S/P TURP: - Pt POD#1 s/p TURP with Dr. Garcia - Doing well, progressing as expected - Afebrile, vitals stable - Tolerating PO diet - 3 way Cabrajal catheter intact, patent and draining clear urine with CBI on slow - CBI clamped this am, nursing aware - Maintain Carbajal catheter - Anticipate home with Carbajal catheter later today presuming urine appropriate and he continues to progress as expected - Urine remains clear with CBI clamped - Patient ready for discharge now with Carbajal catheter, sent course of antibiotics - Expected clinical course reviewed, all questions answered - Will arrange outpatient follow-up with our service for voiding trial Total Time Total Time Spent Total Time Spent (In Minutes): 29 Discharge Plan Discharge Items Patient Disposition: Home - Self-Care Reason For Visit: Benign Prostatic Hyperplasia with Urinary Obstruct Discharge Diagnosis: Same Activity: Resume your previous activity Lifting: No more than 50 pounds Bathing Comment: Okay to shower after discharge, no tub bath or soaking Non-emergency contact: Urologist Call non-emergency contact if: you have any medication questions, your symptoms worsen, your pain is not controlled, your pain is worsening, your pain is unusual for you, your pain is concerning for you, you have a fever and your temperature is above 101.5 Follow-up/Referrals: Ramirez Willett DO [Primary Care Provider] - [facility],Nurse [FAKE FOR SCHEDULES] - 01/06/24 9:00 am Diet: Regular Addtl Attending Provider Instructions: Please take all medications as prescribed and keep all follow-ups as scheduled. Please call our office at [phone] with any questions, concerns or need to reschedule appointments for any reason. We are happy to assist you. Tips for your recovery at home: Dont be alarmed by brownish or reddish blood or clots in your urine. This is a result of the procedure. This may occur off and on for weeks to months after the procedure but should continue to improve. Drink plenty of fluids during the day (enough to keep your urine very light colored). This will help keep a healthy flow of urine. Do not lift >25 lbs until your followup Avoid constipation. Please use a stool softener (Colace) for the first two weeks after your procedure Be sure to finish the antibiotics as prescribed. If you go home with a catheter, please wash tubing where it enters your body twice daily with mild soap (Dove or Dial). Once your catheter is removed, expect some blood in your urine and some burning when you urinate. You should have an appointment to have this removed, if you do not please call our office to arrange. Pending Studies at Discharge: Yes Stand-Alone Forms: My [facility] [email or web address], Smoking Cessation Medications and DC Order Prescriptions: New cephalexin 500 mg capsule 500 mg PO BID 7 Days Qty: 14 0RF Continued calcium carbonate [Tums E-X] 300 mg (750 mg) tablet,chewable 300 mg PO BID PRN (Reason: dyspepsia) Qty: 60 0RF acetaminophen [Tylenol Extra Strength] 500 mg tablet 500 mg PO Q6H PRN (Reason: fever) Qty: 30 2RF Pepto-Bismol Max St 525 mg/15 mL suspension 525 mg PO Q30M PRN (Reason: diarrhea) Qty: 236 0RF Rx Instructions: Give 15mL PO every hour for diarrhea, heartburn, indigestion. Do not exceed 8 doses in a 24 hour period carboxymethylcellulose sodium [Refresh Tears] 0.5 % drops 1 drp ophthalmic (eye) BID Qty: 15 2RF hydrocortisone [Cortizone-10] 1 % cream 1 applic topical BID PRN (Reason: skin irritation) Qty: 28.4 0RF phenobarbital 60 mg tablet 60 mg PO HS 30 Days Qty: 30 0RF guaifenesin [Mucinex] 600 mg tablet extended release 12hr 600 mg PO BID PRN (Reason: congestion) Qty: 60 1RF Rx Instructions: Take 1 tab p.o. twice a day for 7 days and then as needed sucralfate 1 gram tablet 1 g PO HS PRN (Reason: Heartburn) famotidine 40 mg tablet 40 mg PO QPM PRN (Reason: Heartburn) Rx Instructions: 40 MG ORALLY DAILY IN THE PM nystatin 100,000 unit/gram cream 1 applic topical BID PRN (Reason: yeast) lansoprazole [Prevacid] 30 mg capsule,delayed release(DR/EC) 30 mg PO QAM PRN (Reason: Heartburn) Rx Instructions: Take 1 capsule in the morning daily levothyroxine 150 mcg tablet 150 mcg PO QAM Rx Instructions: TAKE 1 TABLET BY MOUTH EVERY DAY IN THE MORNING clotrimazole 1 % cream 1 applic topical BID PRN (Reason: Dry Skin) Rx Instructions: Apply to affected feet twice a day for up to 2 weeks or until resolved Trelegy Ellipta 100-62.5-25 mcg blister with device 1 inh inhalation QAM Held sildenafil [Viagra] 50 mg tablet 50 mg PO ONCE PRN (Reason: sexual activity) Qty: 4 3RF Hold Instructions: Resume on 01/07/24. Wait until follow-up to discuss Rx Instructions: administer 30 minutes to 4 hours before activity Discontinued nitrofurantoin monohyd/m-cryst [Macrobid] 100 mg capsule 100 mg PO Q12H 7 Days Qty: 14 0RF Rx Instructions: must administer with a meal/food Discharge Orders: Discharge Order (Routine); Ordered 12/26/23 Ordered By: Emily Stevenson Admission Data Admit Date/Time: 12/25/23 07:55 Attending Provider: Dave Garcia Admit Provider: Dave Garcia Primary Care Provider: Ramirez Willett Other Providers: Ramirez Chou Other Interventions: Discharge Summary Assessment (RN) Last Done: 12/26/23 11:07 Coding Level of Care Code 90031 IN/OBS DISCH 30 MIN/LESS Diagnoses Urinary retention due to benign prostatic hyperplasia N40.1; R33.8 S/P TURP Z90.79
== END 2023-12-26 12:25 | disposition home or self-care (01) ==
LOC: 3E 06:40 → ASU 06:40